=== PATIENT | male | born 1955 | race Caucasian/White ===

== ENCOUNTER 2017-05-18 16:56 | Emergency (ER) | payer MEDICARE ==
[~2017-05-18] VITALS: Ht 172.7 cm; Wt 89.0 kg
[2017-05-18 17:01] VITALS: BP 140/89; PULSE 89; RESP 16; TEMP 98.2; O2SAT 99
--- NOTE | 2017-05-18 17:36 | PD ---
HPI Chief Complaint: Cold / Flu Symptoms Time Seen by Provider: 17:23 Travel History International Travel<30 days: No Contact w/Intl Traveler<30days: No Traveled to known affect area: No History of Present Illness HPI 61-year-old male complains of cough and blood-tinged sputum. Patient states that he has persistent cough for the past 3 weeks. Patient noticed some blood- tinged sputum this morning. Patient denies any headache. Patient denies earache and sore throat. Patient has history of chronic sinus problem. Patient has been taking Nasacort for that. Patient denies any chest pain or shortness of breath. Patient denies abdominal pain. Patient denies any fever chills. has history of chronic kidney disease. [facility] Social History Tobacco Use: No Allergies-Medications (Allergen,Severity, Reaction): Coded Allergies: No Known Allergies (Unverified , 05/18/17) Reported Meds & Prescriptions Reported Meds & Active Scripts Active Zithromax Z-Crow (Azithromycin) 250 Mg Dspk 250 Mg PO DIRECTED 500 MG (2 tabs) day 1, then 1 tab days 2-5. Reported Timolol Opth Drops 0.5 % Soln 1 Drop EACH EYE BID Ranitidine (Ranitidine HCl) 150 Mg Tab 150 Mg PO BID Pred Mild Opth 0.12% (Prednisolone Acetate) 0.12% Susp 1 Drop EACH EYE BID Glucosamine 1,500 Mg Tab 3,000 Mg PO DAILY Klonopin (Clonazepam) 1 Mg Tab 1 Mg PO BID Garlic 1,500 Mg Capsule 1,200 Mg PO DAILY Fluoxetine (Fluoxetine HCl) 20 Mg Capsule 20 Mg PO DAILY Fenofibrate 160 Mg Tab 160 Mg PO DAILY Cetirizine (Cetirizine HCl) 10 Mg Chew 10 Mg CHEW DAILY Carbamazepine ER 12 HR (Carbamazepine) 200 Mg Cap 200 Mg PO Q12HR Atorvastatin (Atorvastatin Calcium) 80 Mg Tab 80 Mg PO HS Aspirin 81 Mg Chew 81 Mg CHEW DAILY Review of Systems General / Constitutional: No: Fever Eyes: No: Visual changes HENT: No: Headaches Cardiovascular: No: Chest Pain or Discomfort Respiratory: Positive: Cough, Hemoptysis, No: Shortness of Breath Gastrointestinal: No: Abdominal Pain Genitourinary: No: Dysuria Musculoskeletal: No: Pain Skin: No Rash Neurologic: No: Weakness Psychiatric: No: Depression Endocrine: No: Polydipsia Hematologic/Lymphatic: No: Easy Bruising Physical Exam Narrative GENERAL: Well-nourished, well-developed patient. SKIN: Focused skin assessment warm/dry. HEAD: Normocephalic. EYES: No scleral icterus. No injection or drainage. NECK: Supple, trachea midline. No JVD or lymphadenopathy. CARDIOVASCULAR: Regular rate and rhythm without murmurs, gallops, or rubs. RESPIRATORY: Breath sounds equal bilaterally. No accessory muscle use. GASTROINTESTINAL: Abdomen soft, non-tender, nondistended. MUSCULOSKELETAL: No cyanosis, or edema. BACK: Nontender without obvious deformity. No CVA tenderness. Neurologic exam normal. Data Data Last Documented VS Vital Signs Date Time Temp Pulse Resp B/P (MAP) Pulse Ox O2 Delivery O2 Flow Rate FiO2 05/18/17 18:27 93 16 97 05/18/17 17:34 Room Air 05/18/17 17:01 98.2 140/89 (106) Orders Orders Chest, Single Ap (05/18/17 17:32) Ed Discharge Order (05/18/17 18:04) [facility] Medical Decision Making Medical Screen Exam Complete: Yes Emergency Medical Condition: Yes Interpretation(s) 1802 p.m. Chest x-ray shows no acute consolidation. Differential Diagnosis Differential diagnosis including bronchitis, pneumonia, lung mass. Narrative Course 61-year-old male with persistent cough for the past 3 weeks and blood-tinged sputum this morning. Diagnosis Primary Impression: Bronchitis Patient Instructions: General Instructions Additional Instructions: Z-Crow as directed. Follow-up with personal physician. Return if worse. Follow -up with survey chief if persistent blood-tinged sputum. Med/Other Pt SpecificInfo: Prescription(s) given Scripts Azithromycin (Zithromax Z-Crow) 250 Mg Dspk 250 MG PO DIRECTED for Infection, #1 DSPK 0 Refills 500 MG (2 tabs) day 1, then 1 tab days 2-5. Prov: Zia Rosario MD 05/18/17 Disposition: 01 DISCHARGE HOME Condition: Stable Zia Rosario MD May 18, 2017 17:36
[2017-05-18] MEDS ORDERED: GARL3CAP PO (17:51)
[2017-05-18] MEDS ORDERED: CLON1 PO (17:51)
[2017-05-18] MEDS ORDERED: ASPI-516 CHEW (17:51)
[2017-05-18] MEDS ORDERED: RANI150T PO (17:51)
[2017-05-18] MEDS ORDERED: ATOR80TA45 PO (17:51)
[2017-05-18] MEDS ORDERED: PRED.125%O EACH EYE (17:51)
[2017-05-18] MEDS ORDERED: GLUC15009 PO (17:51)
[2017-05-18] MEDS ORDERED: CARB200C6 PO (17:51)
[2017-05-18] MEDS ORDERED: CETI10CH CHEW (17:51)
[2017-05-18] MEDS ORDERED: TIMO0.5S30 EACH EYE (17:51)
[2017-05-18] MEDS ORDERED: FLUO20CA12 PO (17:51)
[2017-05-18] MEDS ORDERED: FENO160T PO (17:51)
--- NOTE | 2017-05-18 17:57 | RADRPT ---
EXAM DATE/TIME: 05/18/2017 17:33 [place] COMPARISON: No previous studies available for comparison. INDICATIONS : Productive cough. This morning coughed up blood this morning. MEDICAL HISTORY : None. SURGICAL HISTORY : None. ENCOUNTER: Initial ACUITY: 1 day PAIN SCORE: 0/10 LOCATION: Bilateral chest FINDINGS: Single AP view of the chest. The lungs are clear. Cardiomediastinal silhouette within normal limits. No evidence of pleural effusion or pneumothorax. CONCLUSION: No acute cardiopulmonary disease identified. Fabrizio Gray MD on May 18, 2017 at 17:55 Board Certified Radiologist. This report was verified electronically.
[2017-05-18] MEDS ORDERED: ZITHTAB PO (18:04)
== END 2017-05-18 18:15 | disposition home or self-care (01) ==
LOC: PHED 16:56
DX: J40 Bronchitis, not specified as acute or chronic (principal); N18.9 Chronic kidney disease, unspecified
CPT/HCPCS: 71045; 99283